=== PATIENT | male | born 1970 | race Caucasian/White ===

== ENCOUNTER 2018-09-05 17:54 | Inpatient (IN) | payer OTHER, MEDICAID, SELFPAY ==
[2018-09-05] VITALS (7 sets, daily range): BP systolic 125–156; BP diastolic 65–89; PULSE 111–119; RESP 17–22; TEMP 37.2–37.7; O2SAT 95–100; BMI 32.8
--- NOTE | 2018-09-05 18:03 | DI.RAD.S_ITS ---
PROCEDURE: XR FOOT RT MIN 3V INDICATIONS: foreign body/glass TECHNIQUE: 3 views of the foot were acquired. COMPARISON: None. FINDINGS: Bones: No fractures or dislocations. No suspicious bony lesions. Soft tissues: No tibiotalar joint effusion. Achilles tendon appears normal. No radiopaque foreign body noted. IMPRESSION: No acute bony abnormality of the right foot. No radiopaque foreign body. Dictated by: Veto Magana M.D. on 09/05/2018 at 18:30 Approved by: Veto Magana M.D. on 09/05/2018 at 18:31
--- NOTE | 2018-09-05 18:52 | ED_ITS ---
HPI - Skin/Abscess/Foreign Bdy General Chief complaint: Skin/Abscess/Foreign Body Stated complaint: RT FOOT PAIN Time Seen by Provider: 09/05/18 18:52 Source: patient Mode of arrival: ambulatory Limitations: no limitations History of Present Illness HPI narrative: 48-year-old male here for evaluation of right foot pain and swelling. Patient states that he stepped on a piece of glass several days ago which caused pain. He states that today he was walking up hill when he bent his big toe back and since then he has had quite a bit of discomfort. Came into the emergency department for evaluation. Related Data Home Medications Medication Instructions Recorded Confirmed No Known Home Medications 09/05/18 09/05/18 Allergies Allergy/AdvReac Type Severity Reaction Status Date / Time amoxicillin Allergy Vomiting Verified 09/05/18 18:02 Review of Systems Constitutional Denies fever(s) Cardiovascular Denies chest pain and Denies dyspnea Respiratory Denies dyspnea Musculoskeletal Comments: Right foot pain and swelling Integumentary/Breasts Comments: Cut to the bottom of the right foot Neurologic Reports paresthesias and Reports tremor(s) Hematologic/Lymphatic Denies easy bleeding and Denies easy bruising [facility] Medical History Hypertension (Acute) Social History household members: friend(s) Smoking Status: Current every day smoker Social History household members: friend(s) Smoking Status: Current every day smoker Exam Initial Vital Signs Initial Vital Signs: Vital Signs Temperature 99.7 F H 09/05/18 17:59 Pulse Rate 119 H 09/05/18 17:59 Respiratory Rate 22 09/05/18 17:59 Blood Pressure 154/85 H 09/05/18 17:59 Pulse Oximetry 100 09/05/18 17:59 Const General: cooperative, well groomed and No acute distress Orientation: alert, awake and oriented x3 HENMT Head: normal to inspection and normocephalic Resp Effort & Inspection: normal respiratory effort Cardio Rate: tachycardic Rhythm: regular rhythm Skin Other: 1 cm laceration to the arch of the right foot. No active bleeding. Surrounding redness and swelling the midfoot to the ankle Neuro General: alert, awake and oriented x3 Cognition: normal cognition Speech: speech normal Extrem General: normal to inspection and capillary refill normal Other: Swelling to the right foot from the toes to above the ankle. Range of motion limited by swelling Psych Appearance: grossly normal and well kempt Course Orders Ordered: ED Orders 09/05/18 19:12 Blood Culture Stat 09/05/18 22:54 Education, smoking cessation ONGOING 09/05/18 22:59 Consult to Discharge Planning Routine Consult to Physical Therapy Evaluate & Treat 09/06/18 Basic Metabolic Panel Routine C-Reactive Protein Quant Routine Complete Blood Count AUTO DIFF Routine Acetaminophen (Tylenol) 650 mg PO Q6HR PRN PRN Reason: As Needed for Fever/Mild Pain Hydrocodone Bitart/Acetaminophen ([place] 5/325) 1 tab PO Q4HR PRN PRN Reason: Pain, Moderate (4-6) Last Admin: 09/06/18 00:56 Dose: 1 tab Al Hydrox/Mg Hydrox/Simethicone (Maalox Plus) 30 ml PO Q6HR PRN PRN Reason: Dyspepsia Enoxaparin Sodium (Lovenox) 40 mg SUBCUT DAILY LUISA Sodium Chloride (Normal Saline 0.9%) 1,000 mls @ 100 mls/hr IV CONT LUISA Last Admin: 09/06/18 01:02 Dose: 100 mls/hr Vancomycin HCl 2,000 mg/ (Sodium Chloride) 500 mls @ 250 mls/hr IV Q12H LUISA Ondansetron HCl (Zofran Odt) 4 mg PO Q8HR PRN PRN Reason: Nausea And Vomiting Pantoprazole Sodium (Protonix) 20 mg PO 0600 LUISA Vancomycin HCl (Vancomycin Per Pharmacy) 1 request MISC NOW ONE Stop: 09/05/18 22:59 Discontinued Medications Ceftriaxone Sodium/Dextrose (Rocephin) 1 gm in 50 mls @ 100 mls/hr IV NOW ONE Stop: 09/05/18 18:56 Last Infusion: 09/05/18 20:05 Dose: 0 mls/hr Admin: 09/05/18 19:03 Dose: 100 mls/hr Vancomycin HCl 1,500 mg/ (Sodium Chloride) 500 mls @ 333.333 mls/hr IV NOW ONE Stop: 09/05/18 19:17 Last Infusion: 09/06/18 02:57 Dose: 0 mls/hr Infusion: 09/05/18 21:27 Dose: 333.333 mls/hr Admin: 09/05/18 19:48 Dose: 333.333 mls/hr Vancomycin HCl 500 mg/ Sodium (Chloride) 100 mls @ 100 mls/hr IV NOW ONE Stop: 09/06/18 00:44 Last Admin: 09/06/18 01:26 Dose: 100 mls/hr Ketorolac Tromethamine (Toradol) 30 mg IV NOW ONE Stop: 09/05/18 21:07 Last Admin: 09/05/18 21:16 Dose: 30 mg Morphine Sulfate (Morphine) 4 mg IV NOW ONE Stop: 09/05/18 19:15 Last Admin: 09/05/18 19:48 Dose: 4 mg Morphine Sulfate (Morphine) 4 mg IV NOW ONE Stop: 09/05/18 21:08 Last Admin: 09/05/18 21:16 Dose: 4 mg Ondansetron HCl (Zofran) 4 mg IV NOW ONE Stop: 09/05/18 19:12 Last Admin: 09/05/18 19:12 Dose: 4 mg Vital Signs - 8 hr 09/05/18 20:37 09/05/18 20:44 09/05/18 21:16 Temperature 99.0 F 98.9 F 99.4 F Pulse Rate 116 H Respiratory Rate Blood Pressure Blood Pressure [Right Arm] 156/82 H Pulse Oximetry 09/05/18 21:35 09/05/18 23:35 09/06/18 01:22 Temperature 99.8 F H 99.4 F Pulse Rate 119 H 113 H Respiratory Rate 20 17 Blood Pressure 128/65 125/75 Blood Pressure [Right Arm] Pulse Oximetry 96 95 95 09/06/18 03:30 Temperature 97.9 F Pulse Rate 108 H Respiratory Rate 16 Blood Pressure 116/76 Blood Pressure [Right Arm] Pulse Oximetry 97 MDM - Skin/Abscess/Foreign Bdy Lab Data Attestation: I reviewed the patient's lab results. Result diagrams: 09/05/18 19:00 09/05/18 19:00 Lab Results 09/05/18 09/05/18 09/05/18 Range/Units 19:00 19:00 19:00 WBC 18.3 H (4.5-11.0) X10^3/uL RBC 4.65 (4.5-5.9) X10^6/uL Hgb 14.3 (13.5-17.5) g/dL Hct 42.6 (41-53) % MCV 91.8 (80-100) fL MCH 30.8 (26-34) PG MCHC 33.5 (30-36) % RDW 14.0 (11.6-14.8) % Plt Count 269 (150-400) X10^3/uL Neut % (Auto) 90.1 H (50-75) % Lymph % (Auto) 3.8 L (25-40) % [place] % (Auto) 5.8 (3-14) % Eos % (Auto) 0.1 L (2-4) % Baso % (Auto) 0.2 (0-2) % Neut # (Auto) 77761 H (9192-4455) /uL Lymph # (Auto) 700 L (9981-4906) /uL [place] # (Auto) 1100 H (0-900) /uL Eos # (Auto) 0 (0-450) /uL Baso # (Auto) 0 (0-100) /uL ESR 6 (0-15) MM/HR Sodium 136 L (137-145) mmol/L Potassium 3.8 (3.4-5.1) mmol/L Chloride 100 (98-107) mmol/L Carbon Dioxide 23 (22-32) mmol/L BUN 22 H (9-20) mg/dL Creatinine 1.00 (0.66-1.25) mg/dL Estimated GFR > 60.0 (>60) mL/min BUN/Creatinine Ratio 22.0 (6-22) Glucose 125 H (70-100) mg/dL Lactate (0.7-2.1) mmol/L Calcium 9.8 (8.4-10.2) mg/dL Total Bilirubin 1.2 (0.2-1.3) mg/dL AST 37 (17-59) IU/L ALT 27 (21-72) IU/L Alkaline Phosphatase 84 (38-126) U/L C-Reactive Protein 2.6 H (<1.0) mg/dL Total Protein 8.1 (6.3-8.2) g/dL Albumin 4.9 (3.5-5.0) g/dL Globulin 3.2 (1.7-4.1) g/dL Albumin/Globulin Ratio 1.5 (1.0-2.8) Lipase 117 (23-300) U/L Procalcitonin 0.20 (<0.5) ng/mL 09/05/18 Range/Units 19:00 WBC (4.5-11.0) X10^3/uL RBC (4.5-5.9) X10^6/uL Hgb (13.5-17.5) g/dL Hct (41-53) % MCV (80-100) fL MCH (26-34) PG MCHC (30-36) % RDW (11.6-14.8) % Plt Count (150-400) X10^3/uL Neut % (Auto) (50-75) % Lymph % (Auto) (25-40) % [place] % (Auto) (3-14) % Eos % (Auto) (2-4) % Baso % (Auto) (0-2) % Neut # (Auto) (3445-6314) /uL Lymph # (Auto) (9347-0431) /uL [place] # (Auto) (0-900) /uL Eos # (Auto) (0-450) /uL Baso # (Auto) (0-100) /uL ESR (0-15) MM/HR Sodium (137-145) mmol/L Potassium (3.4-5.1) mmol/L Chloride (98-107) mmol/L Carbon Dioxide (22-32) mmol/L BUN (9-20) mg/dL Creatinine (0.66-1.25) mg/dL Estimated GFR (>60) mL/min BUN/Creatinine Ratio (6-22) Glucose (70-100) mg/dL Lactate 1.3 (0.7-2.1) mmol/L Calcium (8.4-10.2) mg/dL Total Bilirubin (0.2-1.3) mg/dL AST (17-59) IU/L ALT (21-72) IU/L Alkaline Phosphatase (38-126) U/L C-Reactive Protein (<1.0) mg/dL Total Protein (6.3-8.2) g/dL Albumin (3.5-5.0) g/dL Globulin (1.7-4.1) g/dL Albumin/Globulin Ratio (1.0-2.8) Lipase (23-300) U/L Procalcitonin (<0.5) ng/mL Imaging Data foot x-ray: Radiologist's impression: [address] [address] XRay Report Signed Patient: HENRIQUE DELATORRE NMR#: [id number] : 1970Acct:[id number] Age/Sex: 48 / MDate of Service: 09/05/18 Loc: ED Accession Number: [id number] Procedure: XR foot RT min 3V Ordering Provider: Pat Roche D.O. PROCEDURE: XR FOOT RT MIN 3V INDICATIONS: foreign body/glass TECHNIQUE: 3 views of the foot were acquired. COMPARISON: None. FINDINGS: Bones: No fractures or dislocations. No suspicious bony lesions. Soft tissues: No tibiotalar joint effusion. Achilles tendon appears normal. No radiopaque foreign body noted. IMPRESSION: No acute bony abnormality of the right foot. No radiopaque foreign body. Dictated by: Veto Magana M.D. on 09/05/2018 at 18:30 Approved by: Veto Magana M.D. on 09/05/2018 at 18:31 MDM Narrative Medical decision making narrative: Patient is relatively nontoxic appearing however is tachycardic and has an elevated white blood cell count. He has not hypotensive. I did not feel the need to do the 30 cc/kilos fluid despite technically being positive for sepsis. He does have swelling and redness to the right foot. I did use lidocaine around the incision on his foot and extended it slightly and with curved hemostats attempted to probe for any foreign bodies. I was unable to locate any. The x-ray did not show any foreign bodies. I feel given his tachycardia, elevated white blood cell, and the look of his foot that admission to the hospital is necessary. He was given antibiotics here in the emergency department. Discussed case with VÍCTOR Yanez [facility] hospitalist who will admit the patient for further evaluation treatment. Discussed the admiss ion with the patient who expressed understanding and agreement Discharge Plan Departure Patient Disposition: Admitted As Inpatient Clinical Impression: Cellulitis Qualifiers: Site of cellulitis: extremity Site of cellulitis of extremity: lower extremity Laterality: right Qualified Code(s): L03.115 - Cellulitis of right lower limb Discharge Date/Time: 09/05/18 21:28 Interventions: ED Discharge Assessment Last Done: 09/05/18 21:28 Admit Date/Time: 09/05/18 20:33 Admit Provider: Jose Lau
[2018-09-05] MEDS: CEFTRIAXONE 1 GM/50 ML FROZ.PIGGY IV (19:03)
[2018-09-05 19:08] LABS: Add Manual Diff / Slide Review NO; Basophils Absolute Auto 0 /uL (0-100); Basophils Percent Auto 0.2 % (0-2); Eosinophils Absolute Auto 0 /uL (0-450); Eosinophils Percent Auto 0.1 % (2-4); Hematocrit 42.6 % (41-53); Hemoglobin 14.3 g/dL (13.5-17.5); Lymphocytes Absolute Auto 700 /uL (1100-4500); Lymphocytes Percent Auto 3.8 % (25-40); Mean Corpuscular HGB Conc 33.5 % (30-36); Mean Corpuscular Hemoglobin 30.8 PG (26-34); Mean Corpuscular Volume 91.8 fL (80-100); Monocytes Absolute Auto 1100 /uL (0-900); Monocytes Percent Auto 5.8 % (3-14); Neutrophils Absolute Auto 16500 /uL (1500-7000); Neutrophils Percent Auto 90.1 % (50-75); Platelet Count 269 X10^3/uL (150-400); Red Blood Cell Count 4.65 X10^6/uL (4.5-5.9); White Blood Cell Count 18.3 X10^3/uL (4.5-11.0)
[2018-09-05] MEDS: ONDANSETRON 4 MG/2 ML INJ IV (19:12)
[2018-09-05 19:21] LABS: Lactate (Lactic Acid) 1.3 mmol/L (0.7-2.1)
[2018-09-05 19:24] LABS: Alanine Aminotransferase 27 IU/L (21-72); Albumin 4.9 g/dL (3.5-5.0); Albumin Globulin Ratio 1.5 (1.0-2.8); Alkaline Phosphatase 84 U/L (38-126); Aspartate Aminotransferase 37 IU/L (17-59); Bilirubin Total 1.2 mg/dL (0.2-1.3); Blood Urea Nitrogen 22 mg/dL (9-20); C-Reactive Protein Quant 2.6 mg/dL (<1.0); Calcium 9.8 mg/dL (8.4-10.2); Carbon Dioxide 23 mmol/L (22-32); Chloride 100 mmol/L (98-107); Estimated Glomerular Filt Rate > 60.0 mL/min (>60); Globulin 3.2 g/dL (1.7-4.1); Glucose 125 mg/dL (70-100); HEMOLYSIS < 15 (0-50); Lipase 117 U/L (23-300); Potassium 3.8 mmol/L (3.4-5.1); Sodium 136 mmol/L (137-145); Total Protein 8.1 g/dL (6.3-8.2)
[2018-09-05 19:25] LABS: Erythrocyte Sedimentation Rate 6 MM/HR (0-15)
[2018-09-05] MEDS: VANCOMYCIN 1,500 MG in SODIUM CHLORIDE 0.9% 500 ML 333.333 ML IV (19:48)
[2018-09-05] MEDS: MORPHINE 4 MG/ML INJ IV ×2 (19:48→21:16)
[2018-09-05] MEDS: KETOROLAC 30 MG/ML VIAL IV (21:16)
--- NOTE | 2018-09-05 22:59 | PC.NURSE ---
2044- Pt arrived to room 203 from ED via bed. A/O x3, right foot with puncture wound FANNIE, with chux underneath and cradle to bed, any palpation, tough, or weight to foot is severe pain to pt. vital are slightly high BP, HR, and temp-99.7, provided with snack and beverages, and water. rates pain 6/10, pt received morphine 4mg x 2 in ED along with torodol, and ceftriaxone, awaiting orders. Non wt bearing to right foot, 1PA FWW to BRP. Bed alarm on for safety.
[2018-09-06] VITALS (10 sets, daily range): BP systolic 106–141; BP diastolic 55–93; PULSE 82–108; RESP 16–20; TEMP 36.6–37.7; O2SAT 95–98
--- NOTE | 2018-09-06 | DI.MRI.S_ITS ---
PROCEDURE: MR FOOT RT WO/W CON INDICATIONS: Tenosynovitis TECHNIQUE: Noncontrast sagittal T1 spin echo and T2 fast spin echo with fat saturation, long-axis T1 spin echo and T2 fast spin echo with fat saturation; short-axis T1 spin echo, proton density fast spin echo, and T2 fast spin echo with fat saturation through the forefoot. Post-contrast short axis, long axis, and sagittal T1 spin echo with fat saturation through the forefoot. COMPARISON: [facility], CR, XR FOOT RT MIN 3V, 09/05/2018, 18:08. FINDINGS: Image quality: Diagnostic. Bones and joints: There is no acute fracture, dislocation, or suspicious osseous lesion involving the osseous structures of the right midfoot or forefoot. Postcontrast images demonstrate no suspicious osseous enhancement. There are no significant joint effusions. Mild degenerative changes are noted involving the calcaneocuboid and cuboid-metatarsal joints. There also mild degenerative changes involving the 1st metatarsophalangeal joint. Soft tissues: Mild subcutaneous edema is evident about the midfoot and forefoot that is slightly more pronounced along the dorsal aspect of the medial forefoot. There is also edema identified along the plantar aspect of the forefoot within the region of the intrinsic muscles. No significant muscle atrophy is appreciated, however. The Lisfranc ligament is intact. There is mild fluid within the flexor hallucis longus tendon sheath with corresponding enhancement on the postcontrast images. Slight increased signal involving this tendon is also present. There is no significant hearing. Otherwise, the remainder of the flexor and extensor tendons of the midfoot and forefoot appear to be within normal limits. No convincing areas of definitive tenosynovitis are appreciated. IMPRESSION: 1. Mild flexor hallucis longus tendinopathy with corresponding tenosynovitis. No significant hearing. 2. Subcutaneous and deep tissue edema of the midfoot and forefoot. There is no drainable fluid collection or soft tissue mass. 3. Mild degenerative changes involving the lateral mid foot joints and the 1st metatarsophalangeal joint. Dictated by: Jasmeet Bear M.D. on 09/06/2018 at 13:53 Approved by: Jasmeet Bear M.D. on 09/06/2018 at 13:59
[2018-09-06] MEDS: HYDROCODONE/ACET 5/325 TABLET 1 TAB PO ×4 (00:56→21:37)
[2018-09-06] MEDS: SODIUM CHLORIDE 0.9% 1,000 ML 100 ML IV ×2 (01:02→11:48)
[2018-09-06] MEDS: VANCOMYCIN 500 MG in SODIUM CHLORIDE 0.9% 100 ML IV (01:26)
--- NOTE | 2018-09-06 01:57 | P.HP_ITS ---
History of Present Illness Date Patient Seen: 09/05/18 Time Patient Seen: 22:30 Chief complaint: RT FOOT PAIN Narrative: This is a 48-year-old male patient with a history of hypertension who presents today for right foot pain and swelling. The patient reports 2 days ago stepping on glass and lacerating the sole of his right foot. Today he was walking stepped on the ball of his foot when he felt a snap with a sudden on facet of excruciating pain and subsequently had increasing redness and swelling of his foot and reports a red streak going up his ankle. The patient has soaked his foot without change. The patient had associated symptoms of fevers and chills today however he denies any headaches or dizziness visual changes, chest pain or shortness of breath. Has no nausea vomiting, diarrhea or constipation. Attempting to ambulate worsen his pain and swelling and nothing seemed to relieve it prompting him to present to the ER for treatment. Patient arrived in the ER at 5:59 p.m. which time he presented with low-grade temperature 99.7? with heart rate of 119 and blood pressure 154/85 and respirations of 22 saturating 100% on room air. An x-ray was taken of the foot which found no evidence of foreign body and no comment by Radiology abscess or soft tissue changes. Did have an elevated white count 18.3 with remainder of the CBC we within normal limits. He had procalcitonin 0.20 and a CRP of 2.6. His lactate is 1.3. His chemistry is unremarkable with a nonfasting glucose of 125. In the ER the wound on the sole foot was explored however no foreign body identified. Patient is admitted to the hospital for cellulitis and IV antibiotics Patient History Medical History Hypertension (Acute) Surgical History History of inguinal hernia repair (Acute) Social History household members: friend(s) Smoking Status: Current every day smoker Family & Social History Social History: household members friend(s) Prior Living Arrangements House Safety & Behavioral: Feels Safe in Current Yes Environment Been Physically Hurt or No Threatened By a Person Suicidal Ideation Description None Suicide Plan Description No Plan Tobacco & Substance use: Smoking Status Current every day smoker alcohol intake frequency 3 or more drinks per day Substance Use Type marijuana Comment: The patient [place] 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 He is single and his father from respiratory disease in his mother has heart problems and a pacemaker. He has 2 brothers 1 of which is peripheral vascular disease and the other is in good health. He has 1 sister who has no knowledge of her health history. Smoking: Current smoker, 1/2 to 1 pack per day for 35 years Alcohol: Patient admits to 6-816 oz beers per day Substance use: Patient endorses cannabis use. Advanced directives: Patient wishes to be A DO NOT RESUSCITATE and designates his mother be his surrogate decision maker. Meds Home Medications Medication Instructions Recorded Confirmed Type No Known Home Medications 09/05/18 09/05/18 History Allergies Allergy/AdvReac Type Severity Reaction Status Date / Time amoxicillin Allergy Vomiting Verified 09/05/18 18:02 Review of Systems Review of Systems All systems reviewed & are unremarkable except as noted in HPI and below Exam Vital Signs (past 8 hours): - 09/05/18 17:59 09/05/18 18:57 09/05/18 20:37 Temperature 99.7 F H 99.0 F Pulse Rate 119 H 111 H Respiratory Rate 22 18 Blood Pressure 154/85 H Blood Pressure [Right Arm] 145/89 H Pulse Oximetry 100 100 09/05/18 20:44 09/05/18 21:16 09/05/18 21:35 Temperature 98.9 F 99.4 F 99.8 F H Pulse Rate 116 H 119 H Respiratory Rate 20 Blood Pressure 128/65 Blood Pressure [Right Arm] 156/82 H Pulse Oximetry 96 09/05/18 23:35 09/06/18 01:22 Temperature 99.4 F Pulse Rate 113 H Respiratory Rate 17 Blood Pressure 125/75 Blood Pressure [Right Arm] Pulse Oximetry 95 95 Oxygen Delivery Method Room Air Narrative Exam Narrative: General: Well developed, well nourished, in no acute distress. Skin: Warm, dry, pink, no rashes, no visible lesions HEENT: Normocephalic, PERRLA, conjunctiva clear, EAC's are clear with pearly TMs, nasal mucosa pink with no drainage, no sinus tenderness to percussion, posterior pharynx pink without lesions or exudate, no lymphadenopathy Neck: Supple, no masses, no thyromegaly, no carotid bruits or JVD Cardiac: Regular rate and rhythm, S1-S2, no murmur, no gallops or rubs, 2+ radial pulse, 1+ dorsalis pedis pulse Chest: Symmetrical movement, breathing non labored, dry nonproductive cough cough present, BS central coarseness clearing with cough, no residual crackles or wheezing Abdomen: Soft, no tenderness or guarding, no masses or organomegaly, no flank or suprapubic pain, BS normal. Back: Normal curvature, no tenderness to palpation, no CVA tenderness on percussion Extremities: Patient with laceration on the sole of the right foot, small amount of bleeding post wound exploration in the ER, swelling and warmth to above level of the medial malleolus, pain on palpation and with weight-bearing, no deformities Neuro: AAOx4, no localizing neurological findings, no paresthesias Psych: pleasant, thought coherent, stable mood and congruent affect Objective Labs Result Diagrams: 09/06/18 06:58 09/06/18 06:58 Labs: Laboratory Results - last 24 hr 09/05/18 09/05/18 09/05/18 19:00 19:00 19:00 WBC 18.3 H RBC 4.65 Hgb 14.3 Hct 42.6 MCV 91.8 MCH 30.8 MCHC 33.5 RDW 14.0 Plt Count 269 Neut % (Auto) 90.1 H Lymph % (Auto) 3.8 L [place] % (Auto) 5.8 Eos % (Auto) 0.1 L Baso % (Auto) 0.2 Neut # (Auto) 36236 H Lymph # (Auto) 700 L [place] # (Auto) 1100 H Eos # (Auto) 0 Baso # (Auto) 0 ESR 6 Sodium 136 L Potassium 3.8 Chloride 100 Carbon Dioxide 23 BUN 22 H Creatinine 1.00 Estimated GFR > 60.0 BUN/Creatinine Ratio 22.0 Glucose 125 H Lactate Calcium 9.8 Total Bilirubin 1.2 AST 37 ALT 27 Alkaline Phosphatase 84 C-Reactive Protein 2.6 H Total Protein 8.1 Albumin 4.9 Globulin 3.2 Albumin/Globulin Ratio 1.5 Lipase 117 Procalcitonin 0.20 09/05/18 19:00 WBC RBC Hgb Hct MCV MCH MCHC RDW Plt Count Neut % (Auto) Lymph % (Auto) [place] % (Auto) Eos % (Auto) Baso % (Auto) Neut # (Auto) Lymph # (Auto) [place] # (Auto) Eos # (Auto) Baso # (Auto) ESR Sodium Potassium Chloride Carbon Dioxide BUN Creatinine Estimated GFR BUN/Creatinine Ratio Glucose Lactate 1.3 Calcium Total Bilirubin AST ALT Alkaline Phosphatase C-Reactive Protein Total Protein Albumin Globulin Albumin/Globulin Ratio Lipase Procalcitonin Assessment & Plan Assessment & Plan narrative: 1. Cellulitis right foot, acute -warmth swelling and redness to above the level of the malleolus -previous restrict no longer in evidence is described, elevated white count at 18.3 lactate of 1.3, CRP 2.6, procalcitonin 0.20 -wound on the sole of the foot has been explored by ED physician with no foreign body found, no foreign body visualized on imaging -the patient is started on Rocephin and vancomycin, pharmacy to dose vancomycin. 2. Alcohol abuse, chronic -patient admits to 6-816 oz beers daily. -patient comes last drink was approximately 12-24 hours ago without evidence of withdrawal symptoms -continue to evaluate and monitor for alcohol withdrawals 3. Current daily smoker, chronic -patient smokes 1/2 to 1 pack per day as well as cannabis. -discussed smoking cessations for greater than 3 but less than 10 min. The patient is admitted to the hospital due to the severity of symptoms and the risk of complications. He is admitted as observation with expected length of stay to be less than 2 midnights. Quality VTE Deep Vein Thrombosis/Pulmonary Embolism Present on Admission: No
[2018-09-06] MEDS: PANTOPRAZOLE 20 MG TABLET PO (06:24)
--- NOTE | 2018-09-06 07:07 | PM.PN.1 ---
Subjective Date Patient Seen: 09/06/18 Interval history: Fabián Granados is a 48-year-old male patient with a past medical history significant for hypertension and alcohol dependence who presented today for right foot pain and swelling after hiking and stepping on foreign body. The patient is resting in bed. He appears significantly ill. He is diaphoretic. He endorses fever and chills. He denies headache, chest pain, shortness of breath, nausea, vomiting, dysuria, diarrhea or constipation. He is unable to dorsiflex his foot due to pain. He is voiding and eliminating without difficulty. He is not ambulating due to pain and foot infection. Exam Vital Signs (past 8 hours): - 09/05/18 23:35 09/06/18 01:22 09/06/18 03:30 Temperature 99.4 F 97.9 F Pulse Rate 113 H 108 H Respiratory Rate 17 16 Blood Pressure 125/75 116/76 Pulse Oximetry 95 95 97 Oxygen Delivery Method Room Air Narrative Exam Narrative: General: Middle-aged gentleman sitting in bed and in no acute distress, appears mildly uncomfortable and ill, diaphoretic, well-developed, well-nourished, appropriately interactive. HEENT: Normocephalic, atraumatic. External ears without defect. Pupils equal, round, and reactive to light. Anicteric sclerae, moist conjunctivae, and no lid lag. Oropharynx free of erythema and cobble stoning with moist mucosa. Neck: Supple with full range of motion. No lymphadenopathy or thyromegaly. Cardiovascular: Regular rhythm, tachycardic, without murmurs, rubs, or gallops appreciated. Pulmonary: Clear to auscultation bilaterally without crackles, wheezes, or rhonchi. Normal respiratory effort with no use of accessory muscles. Abdomen: Soft, bowel sounds present, nontender, nondistended. No hepatosplenomegaly or masses appreciated. Extremities: Right foot erythema and edema especially medially with streaking up leg. Significantly tender to touch on plantar surface of foot close to wound and dorsum of foot medially. Unable to dorsiflex foot due to pain. Skin: Normal temperature, turgor, and texture; no rash, ulcers, or subcutaneous nodules appreciated. Neurological: Cranial nerves grossly intact. Psychiatric: Normal mood and affect. Alert and oriented to person, place, and time. Objective Labs Result Diagrams: 09/06/18 06:58 09/06/18 06:58 Labs: Laboratory Results - last 24 hr 09/05/18 09/05/18 09/05/18 19:00 19:00 19:00 WBC 18.3 H RBC 4.65 Hgb 14.3 Hct 42.6 MCV 91.8 MCH 30.8 MCHC 33.5 RDW 14.0 Plt Count 269 Neut % (Auto) 90.1 H Lymph % (Auto) 3.8 L [place] % (Auto) 5.8 Eos % (Auto) 0.1 L Baso % (Auto) 0.2 Neut # (Auto) 47779 H Lymph # (Auto) 700 L [place] # (Auto) 1100 H Eos # (Auto) 0 Baso # (Auto) 0 ESR 6 Sodium 136 L Potassium 3.8 Chloride 100 Carbon Dioxide 23 BUN 22 H Creatinine 1.00 Estimated GFR > 60.0 BUN/Creatinine Ratio 22.0 Glucose 125 H Lactate Calcium 9.8 Total Bilirubin 1.2 AST 37 ALT 27 Alkaline Phosphatase 84 C-Reactive Protein 2.6 H Total Protein 8.1 Albumin 4.9 Globulin 3.2 Albumin/Globulin Ratio 1.5 Lipase 117 Procalcitonin 0.20 09/05/18 19:00 WBC RBC Hgb Hct MCV MCH MCHC RDW Plt Count Neut % (Auto) Lymph % (Auto) [place] % (Auto) Eos % (Auto) Baso % (Auto) Neut # (Auto) Lymph # (Auto) [place] # (Auto) Eos # (Auto) Baso # (Auto) ESR Sodium Potassium Chloride Carbon Dioxide BUN Creatinine Estimated GFR BUN/Creatinine Ratio Glucose Lactate 1.3 Calcium Total Bilirubin AST ALT Alkaline Phosphatase C-Reactive Protein Total Protein Albumin Globulin Albumin/Globulin Ratio Lipase Procalcitonin Assessment & Plan Assessment & Plan narrative: Fabián Granados is a 48-year-old male patient with a past medical history significant for hypertension and alcohol use who presented today for right foot pain and swelling after stepping on foreign body. 1. Acute right foot tenosynovitis and cellulitis, present on admission. Active. -Patient recently stepped on foreign body while hiking and presented with excruciating pain, erythema and cellulitis with mild streaking. -WBC elevated at 18.3 and trending down today to 13.5. Procalcitonin initially negative at 0.2 but trending up today to 1.6. Continue to trend WBC and procalcitonin daily. -Started on vancomycin with dosing per pharmacy and Zosyn 3.375 g every 8 hours. -ED physician explored foot for foreign body which was not found and no evidence of FB on imaging. -Ordered MRI which demonstrated mild flexor hallucis longus tendinopathy with corresponding tenosynovitis, subcutaneous and deep tissue edema of the midfoot and forefoot without drainable fluid collection or soft tissue mass. -Ordered wound care consult, pending. -Ordered Orthopedic consult and we appreciate their time and care of the patient. Dr. Adkins plans to see patient and potentially take to the OR to washout foot. 2. Chronic alcohol dependence, present on admission. Active. -Patient admits to 6-8 16 oz beers daily. -Last drink was approximately 12-24 hours ago without evidence of withdrawal symptoms. Patient denies any history of alcohol withdrawal, seizures or DTs. -Continue to monitor closely for alcohol withdrawal. Low threshold to start CIWA protocol. -Discussed cutting back and cessation of alcohol use. 3. Tobacco dependence, present on admission. Active. -Patient reports he is withdrawing from nicotine. Offered the patient Nicoderm, however, he has a skin allergy to the patch. -Recommended smoking cessation. Disposition: Patient will be hospitalized for several days depending on response to antibiotic therapy and probable surgical intervention. Quality VTE Deep Vein Thrombosis/Pulmonary Embolism Present on Admission: No
[2018-09-06 07:17] LABS: Add Manual Diff / Slide Review NO; Basophils Absolute Auto 0 /uL (0-100); Eosinophils Absolute Auto 100 /uL (0-450); Eosinophils Percent Auto 0.7 % (2-4); Hematocrit 38.3 % (41-53); Hemoglobin 13.1 g/dL (13.5-17.5); Lymphocytes Absolute Auto 400 /uL (1100-4500); Mean Corpuscular HGB Conc 34.2 % (30-36); Mean Corpuscular Hemoglobin 31.3 PG (26-34); Mean Corpuscular Volume 91.3 fL (80-100); Monocytes Absolute Auto 500 /uL (0-900); Neutrophils Absolute Auto 12400 /uL (1500-7000); Neutrophils Percent Auto 92.3 % (50-75); Platelet Count 208 X10^3/uL (150-400); Red Blood Cell Count 4.19 X10^6/uL (4.5-5.9); Red Cell Distribution Width 13.9 % (11.6-14.8); White Blood Cell Count 13.5 X10^3/uL (4.5-11.0)
[2018-09-06 07:33] LABS: BUN Creatinine Ratio 17.3 (6-22); Blood Urea Nitrogen 19 mg/dL (9-20); Calcium 8.8 mg/dL (8.4-10.2); Carbon Dioxide 25 mmol/L (22-32); Chloride 102 mmol/L (98-107); Estimated Glomerular Filt Rate > 60.0 mL/min (>60); Glucose 102 mg/dL (70-100); HEMOLYSIS < 15 (0-50); Potassium 3.7 mmol/L (3.4-5.1); Sodium 135 mmol/L (137-145)
[2018-09-06 07:50] LABS: C-Reactive Protein Quant 14.7 mg/dL (<1.0)
--- NOTE | 2018-09-06 10:43 | PT.IIE ---
Surgical History (Last Reviewed 09/06/18 @ 09:04 by JAYNE Mas) History of inguinal hernia repair (Acute) Medical History (Last Reviewed 09/06/18 @ 09:04 by JAYNE Mas) Hypertension (Acute) Physical Therapy Inpatient Evaluation/Re-Eval M1 PT/OT-IP Prior Functional Status Start: 09/06/18 08:19 Freq: NEEDED Status: Active Protocol: Document 09/06/18 10:43 DLM (Rec: 09/06/18 12:14 DLM [id number]) Medical Review Prior Functional Status Medical History Reviewed Yes Diet/Fluid Consistency Regular Communication WNL Mobility and Gait Independent without device, community distances Activities of Daily Living and IADL's Independent Prior Functional Level (Other details) he started using crutches at home before coming to the hospital Social History Household Members friend(s) Living Arrangements House Number of Floors (Floors) One Floor Number of Stairs To Enter/Railing? 2 with one rail Home Equipment Crutches Additional Social History Comment lives in barn, uneven ground to get to the barn Hx of back injury M2 PT-IP Current Condition Start: 09/06/18 08:19 Freq: NEEDED Status: Active Protocol: Document 09/06/18 10:43 DLM (Rec: 09/06/18 12:14 DLM [id number]) Physical Therapy Current Condition Current Condition Evaluation Date 09/06/18 Treatment Diagnosis right foot infection, impaired gait Onset Date 09/05/18 Precautions Other Precautions no weight bearing status ordered, no dressing on foot at this time M3 PT-IP Subjective Start: 09/06/18 08:19 Freq: NEEDED Status: Active Protocol: Document 09/06/18 10:43 DLM (Rec: 09/06/18 12:14 DLM [id number]) Subjective Physical Therapy Visit Type Type Initial Evaluation Visit Start Time 10:19 Visit Stop Time 10:43 Total Visit Minutes 24 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 0 Physical Therapy Visit Comments Patient Comments He got tired and sore on the crutches but got around ok, he thinks a walker would be easier for him to use Patient Goals he wants to return home Therapy Pain Assessment Pain When Pain Assessed During Mobility Pain Present Pain Present Pain Reported Location Right Foot Intensity 4 Scale Used Numeric (1 - 10) Description Aching Pain Management Techniques Elevation M4 PT-IP Mobility and Gait Start: 09/06/18 08:19 Freq: NEEDED Status: Active Protocol: Document 09/06/18 10:43 DLM (Rec: 09/06/18 12:14 DLM [id number]) PT-Bed Mobility Assessment Rolling Type of Rolling Bilateral Level of Assist Independent Supine to Sit Supine to Sit Independent Sit to Supine Sit to Supine Independent Scooting Scooting to Edge of Bed Independent Scooting Up and Down in Bed Independent PT-Transfer Assessment Sit to and From Stand Sit to and from Stand Independent Use of Upper Extremities Equipment Transfer Assistive Device Gait Belt Front Wheeled Walker Transfers Transfer Destination Bed Transfer Technique Stand Step Pivot Transfer Ability Level of Assist Standby Assistance Use of Upper Extremities Gait Assessment Gait Gait Assistance Required: Standby Assistance Distance (Feet) 50 Assistive Devices Assistive Device Gait Belt Front Wheeled Walker Gait Deviations General Gait Pattern Antalgic Factors Limiting Gait Function Factors Limiting Gait Function Decreased Activity Tolerance Comments Gait Comments pt using non-weight bearing on right foot at this time, demonstrates good ability to hop on left LE for functional gait, assisted pt with IV PT-Balance Assessment Sitting Balance and Reactions Static Sitting Balance Ability Normal Dynamic Sitting Balance Ability Normal Standing Balance and Reactions Static Standing Balance Ability Good Dynamic Standing Balance Ability Good Device Used FWW M5 PT-IP Objective Assessments Start: 09/06/18 08:19 Freq: NEEDED Status: Active Protocol: Document 09/06/18 10:43 DLM (Rec: 09/06/18 12:14 DLM [id number]) Orientation Orientation/Cognition Level of Alertness Alert Orientation Name Age Birthday Month Date Year Day of Week Place Situation Language Function Ability No Deficits Noted Safety Awareness Understands Safety Issues Memory Description No Deficits Noted Gross Range of Motion Upper Extremity ROM Assessment Within Functional Limits Lower Extremity ROM Assessment Right Impaired Impairments foot/ankle edema with wound on plantar foot Strength Upper Extremity Strength Assessment Within Functional Limits Lower Extremity Strength Assessment Right Impaired Hip WNL Knee WNL Ankle not tested due to wound, moving actively Coordination Assessment Gross Coordination Gross Coordination WNL Sensation Assessment Sensation Gross Sensation WNL Muscle Tone Muscle Tone WNL Yes M6 PT-IP Treatment Start: 09/06/18 08:19 Freq: NEEDED Status: Active Protocol: Document 09/06/18 10:43 DLM (Rec: 09/06/18 12:14 DL [id number]) Physical Therapy Treatment Education Education Provided Safety M7 PT-IP Assessment and Plan Start: 09/06/18 08:19 Freq: NEEDED Status: Active Protocol: Document 09/06/18 10:43 DLM (Rec: 09/06/18 12:14 DLM [id number]) PT Summary Assessment and Plan Potential Rehabilitation Potential Excellent Status of Condition at Evaluation Evolving Summary Impairments Pain ROM Strength Balance Assessment Summary Fabián is alert and shows good effort with therapy. He tolerated ambulation well with fWW. He is able to use non- weight bearing on right foot to manage his pain and wound at this time. He was using crutches before his admission but feels a FWW would be easier to use at home. Will defer further gait to nursing at this time. He appears safe to discharge home with FWW or crutches (pt preference). Recommendations To Nursing Amount of Assist Needed Standby Assistance Discharge Recommendations PT Discharge Recommendations Home with Assistance Other Discharge Recommendations he reports his friends can help Equipment Needed for Home Before pt wanting FWW Discharge
[2018-09-06] MEDS: VANCOMYCIN 2,000 MG in SODIUM CHLORIDE 0.9% 500 ML 250 ML IV ×2 (11:50→23:10)
[2018-09-06] MEDS: ENOXAPARIN 40 MG/0.4 ML SYRINGE SUBCUT (11:51)
[2018-09-06] MEDS: MAG HYDROX/ALUM/SIMETH 30 ML UDC PO (11:56)
--- NOTE | 2018-09-06 12:49 | PC.NURSE ---
Addendum entered by Galilea Khalil R.N. 09/06/18 14:43: pt went to MRI, IVF and vanco infusion had to be stopped, restarted at 1440. will delay next scheduled antibiotic. Original Note: DAy Shift- pt became NPO at 1250 per verbal order by Dr. Tinoco. Right bottom of foot now has dressing per wound consult.
[2018-09-06 16:04] LABS: Hemoglobin A1C% w Est Avg Glu 5.4 % (4.0-6.0)
[2018-09-06] MEDS: PIPERACILLIN-TAZO 3.375 GM/50 ML FROZ.PIGGY IV ×2 (18:00→20:27)
--- NOTE | 2018-09-06 22:04 | P.CONS_ITS ---
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 He states that there was a broken bilateral bottle and he had stepped on glass about a day before that somewhere else in his foot and that healed up without difficulty. On his most recent episode it was a fairly large sharps shard of glass. He removed it without difficulty but then he notes that he developed some increased redness and swelling around the foot and he felt a pop and had significant increased pain. Social history is remarkable for a brother with Buerger's disease and he notes that he is a heavy smoker. He specifically denies being a diabetic. [facility] Medical History Hypertension (Acute) Surgical History History of inguinal hernia repair (Acute) Social History household members: friend(s) Smoking Status: Current every day smoker Social History household members: friend(s) Smoking Status: Current every day smoker Meds Home Medications Medication Instructions Recorded Confirmed Type No Known Home Medications 09/05/18 09/05/18 History Allergies Allergy/AdvReac Type Severity Reaction Status Date / Time amoxicillin Allergy Vomiting Verified 09/05/18 18:02 Review of Systems Review of Systems No recent fever cough or cold, he does smoke any uses some marijuana, he has not had any recent respiratory problems and has no known history of recurrent skin infections. He denies a history of intravenous drug abuse. Exam Vital Signs (past 8 hours): - 09/06/18 15:46 09/06/18 19:58 Temperature 99.6 F 99.6 F Pulse Rate 90 89 Respiratory Rate 20 20 Blood Pressure 124/74 106/55 L Pulse Oximetry 98 98 Oxygen Delivery Method Room Air Oxygen Flow Rate 0 Narrative Exam Narrative: HEENT is benign, lungs are clear cor regular rate and rhythm, abdomen benign, has a palpable dorsalis pedis and posterior tibial pulse bilaterally, he has surgical incision on the plantar aspect of the right foot there is moderate swelling along the plantar aspect of his foot he can fire his toe flexors and toe extensors and IA he was able to fire his tibialis anterior and common toe extensors as well as his perineal tendons, there is no specific pain with gentle passive range of motion of his toes in the MTP joint of the great toe through the 5th toe. There is no there is soft tissue swelling but no specific focal fluctuance. There is moderate cellulitis noted to be with slight streaking up into the calf region. Objective Labs Result Diagrams: 09/06/18 06:58 09/06/18 06:58 Labs: Laboratory Results - last 24 hr 09/06/18 09/06/18 09/06/18 06:58 06:58 06:58 WBC 13.5 H RBC 4.19 L Hgb 13.1 L Hct 38.3 L MCV 91.3 MCH 31.3 MCHC 34.2 RDW 13.9 Plt Count 208 Neut % (Auto) 92.3 H Lymph % (Auto) 3.0 L [place] % (Auto) 4.0 Eos % (Auto) 0.7 L Baso % (Auto) 0.0 Neut # (Auto) 37521 H Lymph # (Auto) 400 L [place] # (Auto) 500 Eos # (Auto) 100 Baso # (Auto) 0 Sodium 135 L Potassium 3.7 Chloride 102 Carbon Dioxide 25 BUN 19 Creatinine 1.10 Estimated GFR > 60.0 BUN/Creatinine Ratio 17.3 Glucose 102 H Hemoglobin A1c Calcium 8.8 C-Reactive Protein 14.7 H Procalcitonin 1.60 H Nasal Screen MRSA (PCR) 09/06/18 09/06/18 06:58 09:20 WBC RBC Hgb Hct MCV MCH MCHC RDW Plt Count Neut % (Auto) Lymph % (Auto) [place] % (Auto) Eos % (Auto) Baso % (Auto) Neut # (Auto) Lymph # (Auto) [place] # (Auto) Eos # (Auto) Baso # (Auto) Sodium Potassium Chloride Carbon Dioxide BUN Creatinine Estimated GFR BUN/Creatinine Ratio Glucose Hemoglobin A1c 5.4 Calcium C-Reactive Protein Procalcitonin Nasal Screen MRSA (PCR) Negative for mrsa Assessment & Plan Assessment & Plan narrative: Right foot x-rays from 09/05/2017 show normal soft tissues no evidence of arthritis, MRI scan from today 09/06/2018 shows no evidence of a focal abscess, subcutaneous edema in the midfoot and forefoot, mild swelling along the flexor hallucis longus with out obvious tearing. Impression is right foot puncture wound with obvious cellulitis but currently no evidence of a subcutaneous abscess. Possible retained foreign body including glass but negative exploration in the emergency room. I have recommended that we continue with IV antibiotics he can be weight-bearing as tolerated especially on his heel with a postoperative shoe and I will re-evaluate him tomorrow to assess his response to the antibiotics. Currently is white count appears to be going down and his temperature is improved.
[2018-09-07] VITALS (9 sets, daily range): BP systolic 116–146; BP diastolic 57–86; PULSE 77–89; RESP 18–20; TEMP 36.6–37.2; O2SAT 96–98
[2018-09-07] MEDS: MAG HYDROX/ALUM/SIMETH 30 ML UDC PO (00:10)
[2018-09-07] MEDS: PIPERACILLIN-TAZO 3.375 GM/50 ML FROZ.PIGGY IV ×3 (05:23→20:38)
[2018-09-07] MEDS: HYDROCODONE/ACET 5/325 TABLET 1 TAB PO ×3 (05:26→18:34)
[2018-09-07] MEDS: PANTOPRAZOLE 20 MG TABLET PO (06:43)
[2018-09-07] MEDS: SODIUM CHLORIDE 0.9% 1,000 ML 100 ML IV (06:45)
[2018-09-07 07:23] LABS: Add Manual Diff / Slide Review NO; Basophils Absolute Auto 0 /uL (0-100); Basophils Percent Auto 0.2 % (0-2); Eosinophils Absolute Auto 300 /uL (0-450); Eosinophils Percent Auto 3.2 % (2-4); Hematocrit 36.1 % (41-53); Hemoglobin 12.2 g/dL (13.5-17.5); Lymphocytes Absolute Auto 400 /uL (1100-4500); Lymphocytes Percent Auto 4.2 % (25-40); Mean Corpuscular HGB Conc 33.9 % (30-36); Mean Corpuscular Volume 91.6 fL (80-100); Monocytes Absolute Auto 500 /uL (0-900); Monocytes Percent Auto 4.7 % (3-14); Neutrophils Absolute Auto 9100 /uL (1500-7000); Neutrophils Percent Auto 87.7 % (50-75); Platelet Count 195 X10^3/uL (150-400); Red Blood Cell Count 3.95 X10^6/uL (4.5-5.9); White Blood Cell Count 10.4 X10^3/uL (4.5-11.0)
[2018-09-07 07:44] LABS: Alanine Aminotransferase 26 IU/L (21-72); Albumin 2.9 g/dL (3.5-5.0); Albumin Globulin Ratio 1.2 (1.0-2.8); Alkaline Phosphatase 70 U/L (38-126); Aspartate Aminotransferase 21 IU/L (17-59); Bilirubin Total 0.3 mg/dL (0.2-1.3); Blood Urea Nitrogen 15 mg/dL (9-20); Calcium 8.2 mg/dL (8.4-10.2); Carbon Dioxide 25 mmol/L (22-32); Chloride 104 mmol/L (98-107); Estimated Glomerular Filt Rate > 60.0 mL/min (>60); Globulin 2.4 g/dL (1.7-4.1); Glucose 99 mg/dL (70-100); HEMOLYSIS < 15 (0-50); Potassium 3.6 mmol/L (3.4-5.1); Sodium 136 mmol/L (137-145); Total Protein 5.3 g/dL (6.3-8.2)
[2018-09-07 08:21] LABS: Procalcitonin 1.49 ng/mL (<0.5)
--- NOTE | 2018-09-07 09:15 | P.PN_ITS ---
Subjective Date Patient Seen: 09/07/18 Time Patient Seen: 09:10 Interval history: Hospital day 2 with right foot cellulitis. Patient did have orthopedic consult done by Dr. Adkins yesterday. She decided to wait on any surgical intervention to see how he responds to antibiotics. He is currently on IV vancomycin and Zosyn. Using [place] 5 mg for pain. He states his pain and swelling to the foot have improved. Also decreased erythema since yesterday according to patient. He has not been doing any significant weight-bearing on the right foot. Exam Vital Signs (past 8 hours): - 09/07/18 05:20 Temperature 98.2 F Pulse Rate 88 Respiratory Rate 18 Blood Pressure 146/81 H Pulse Oximetry 98 Oxygen Delivery Method Room Air Oxygen Flow Rate 0 Narrative Exam Narrative: Alert, oriented no acute distress resting in bed. Right foot. Area of demarcation to his foot and ankle are noticeably decreased specially to the ankle area. Mild erythema to the dorsal medial aspect of foot which is decreased neck according to the patient. Swelling is mild and decreased according to patient. Good blanching and sensation to foot. Dressing to the plantar aspect of foot is dry. Objective Labs Result Diagrams: 09/07/18 06:50 09/07/18 06:50 Labs: Laboratory Results - last 24 hr 09/06/18 09/06/18 09/07/18 06:58 09:20 06:50 WBC 10.4 RBC 3.95 L Hgb 12.2 L Hct 36.1 L MCV 91.6 MCH 31.0 MCHC 33.9 RDW 14.0 Plt Count 195 Neut % (Auto) 87.7 H Lymph % (Auto) 4.2 L [place] % (Auto) 4.7 Eos % (Auto) 3.2 Baso % (Auto) 0.2 Neut # (Auto) 9100 H Lymph # (Auto) 400 L [place] # (Auto) 500 Eos # (Auto) 300 Baso # (Auto) 0 Sodium Potassium Chloride Carbon Dioxide BUN Creatinine Estimated GFR BUN/Creatinine Ratio Glucose Hemoglobin A1c 5.4 Calcium Total Bilirubin AST ALT Alkaline Phosphatase Total Protein Albumin Globulin Albumin/Globulin Ratio Procalcitonin Nasal Screen MRSA (PCR) Negative for mrsa 09/07/18 09/07/18 06:50 06:50 WBC RBC Hgb Hct MCV MCH MCHC RDW Plt Count Neut % (Auto) Lymph % (Auto) [place] % (Auto) Eos % (Auto) Baso % (Auto) Neut # (Auto) Lymph # (Auto) [place] # (Auto) Eos # (Auto) Baso # (Auto) Sodium 136 L Potassium 3.6 Chloride 104 Carbon Dioxide 25 BUN 15 Creatinine 1.00 Estimated GFR > 60.0 BUN/Creatinine Ratio 15.0 Glucose 99 Hemoglobin A1c Calcium 8.2 L Total Bilirubin 0.3 AST 21 ALT 26 Alkaline Phosphatase 70 Total Protein 5.3 L Albumin 2.9 L Globulin 2.4 Albumin/Globulin Ratio 1.2 Procalcitonin 1.49 H Nasal Screen MRSA (PCR) Assessment & Plan Assessment & Plan narrative: Plan: [place] [id number] today. His swelling and erythema to the foot are improved. Decreased pain. Patient appears to be responding well with antibiotic. Dr. Adkins the planned on seeing the patient again today. Will anticipate him continue on his IV antibiotics for another 24-48 hours then planned discharge pending hospitalist clearance and orders. Patient lives on [place]. [facility] VTE Deep Vein Thrombosis/Pulmonary Embolism Present on Admission: No
[2018-09-07] MEDS: ENOXAPARIN 40 MG/0.4 ML SYRINGE SUBCUT (09:53)
--- NOTE | 2018-09-07 10:21 | PC.NURSE ---
Addendum entered by Galilea Khalil R.N. 09/07/18 15:06: Right foot dressing removed, dressing compromised. Area cleansed with NS, tender to touch, old dried blood present over incision. Pat dried and small allevyn dressing. Original Note: Addendum entered by Galilea Khalil R.N. 09/07/18 12:18: Attempted to place Forefoot off/loading ortho shoe per Dr. Adkins and PT recommendation for forefoot offloading. Pt attempted to use X1 ambulating from bed to BR. Pt wanted removed and said will try again later. Original Note: Day Shift- Pt A&OX4, CIWA score 0. Right foot edematous and firm, tender to touch. Redness not exceeding previous marked lines from Dr. Tinoco assessment 09/06. Encouraged elevation on pillows. Right bottom of foot dressing dry. OOB with SBA, pt using walker. Pain controlled with prn [place], states minimal pain while resting, pain increases with movement, when placing foot in a dangle position and with touch. Pt reported 2 small loose diarrhea Bm's this shift. Pt declined nicotine replacement therapy at this time. No other voiced concerns, call light with in reach.
[2018-09-07 11:44] LABS: Vancomycin Trough 11.5 ug/mL (10-20)
--- NOTE | 2018-09-07 12:05 | PC.NURSE ---
Wound Nurse Consult Note with Dr. Bailon We saw Fabián yesterday, September 06, 2018. Fabián was in bed with his right foot elevated on a pillow. His right foot and ankle have erythema and he has developed streaks of redness up from foot to his lower leg. I used a marker and marked these new areas, as there are pen markings from previous days. Dr. Tinoco has notice this as well. I cleaned the plantar surface of his foot with a warm wash cloth. There is no open wound area although this is where he stepped on some glass. I placed a 3x[address] Bailon recommended to Dr Tinoco that ortho also consult on the patient and that Fabián remain non-weight bearing on his right foot.
[2018-09-07] MEDS: VANCOMYCIN 2,000 MG in SODIUM CHLORIDE 0.9% 500 ML 250 ML IV (12:13)
--- NOTE | 2018-09-07 14:35 | P.CMURPRON_ITS ---
CM UR Physician Consult Note Date of Review:: 09/07/18 Date of Admission:: 09/05/18 Length of Stay:: 2 Diagnosis:: RT FOOT PAIN Narrative: 48 yo male with puncture wound to foot. He has extensive cellulitis and tenosynovitis by MRI, also deep soft tissue inf ection without drainable abscrss. This should be inpatient status.
--- NOTE | 2018-09-07 16:27 | CM.DANOTE ---
Discharge Planning/Care Management DCP: assessment: case received and discussed in Team Rounds. Pt is a 48 year old male who admitted night of 09/05 to carer of hospitalist team. Payer: [facility] Admissions status: UR physician has reviewed and discussed case this afternoon with UR ANDRE Tolliver. Sharee has discussed with Dr. Craven and admission status is now INPT: confirmed by UR ANDRE Tolliver from time of admission. Per TRAP OPERATOR Leilani in Team Rounds this morning PT did see pt and has cleared him for the home setting when stable medically for same. A FWW is recommenedd and Leilani was following to facilitate this from the therapy consignment closet. Will follow up tomorrow and meet with pt to assist with any d/c needs that may arise. Dr. Craven does say she expects pt to be able to d/c home on oral medications. CM Discharge Assessment Start: 09/07/18 16:26 Freq: Status: Active Protocol: Document 09/07/18 16:26 ITV (Rec: 09/07/18 16:27 ITV [id number]) Discharge Planning Assessment Advance Directives? No History Provided By Medical Record Expected Length of Stay 2 Prior Living Arrangements House Household Members friend(s) Review Status In Process Next Review Type Continued Stay Review
--- NOTE | 2018-09-07 17:04 | P.PN_ITS ---
Subjective Date Patient Seen: 09/07/18 Interval history: Chart reviewed, Patient seen and examined. The patient has had significant improvement in his right leg cellulitis and tenosynovitis. He continues to have some pain but improvement in rash. He notes diarrhea but reports formed stool. He feels well hydrated. Exam Vital Signs (past 8 hours): - 09/07/18 10:00 09/07/18 13:00 09/07/18 15:47 Temperature 97.8 F 98.5 F Pulse Rate 86 80 Respiratory Rate 18 20 Blood Pressure 126/79 116/65 Pulse Oximetry 97 97 96 Oxygen Delivery Method Room Air Oxygen Flow Rate 0 Narrative Exam Narrative: pleasant male in no Acute distress Lungs: clear to auscultation CV: RRR nl Sl S2 Ext: left foot with decreased erythema, streaking, warmth, swelling Objective Labs Result Diagrams: 09/07/18 06:50 09/07/18 06:50 Labs: Laboratory Results - last 24 hr 09/07/18 09/07/18 09/07/18 06:50 06:50 06:50 WBC 10.4 RBC 3.95 L Hgb 12.2 L Hct 36.1 L MCV 91.6 MCH 31.0 MCHC 33.9 RDW 14.0 Plt Count 195 Neut % (Auto) 87.7 H Lymph % (Auto) 4.2 L [place] % (Auto) 4.7 Eos % (Auto) 3.2 Baso % (Auto) 0.2 Neut # (Auto) 9100 H Lymph # (Auto) 400 L [place] # (Auto) 500 Eos # (Auto) 300 Baso # (Auto) 0 Sodium 136 L Potassium 3.6 Chloride 104 Carbon Dioxide 25 BUN 15 Creatinine 1.00 Estimated GFR > 60.0 BUN/Creatinine Ratio 15.0 Glucose 99 Calcium 8.2 L Total Bilirubin 0.3 AST 21 ALT 26 Alkaline Phosphatase 70 Total Protein 5.3 L Albumin 2.9 L Globulin 2.4 Albumin/Globulin Ratio 1.2 Procalcitonin 1.49 H Vancomycin Trough 09/07/18 11:02 WBC RBC Hgb Hct MCV MCH MCHC RDW Plt Count Neut % (Auto) Lymph % (Auto) [place] % (Auto) Eos % (Auto) Baso % (Auto) Neut # (Auto) Lymph # (Auto) [place] # (Auto) Eos # (Auto) Baso # (Auto) Sodium Potassium Chloride Carbon Dioxide BUN Creatinine Estimated GFR BUN/Creatinine Ratio Glucose Calcium Total Bilirubin AST ALT Alkaline Phosphatase Total Protein Albumin Globulin Albumin/Globulin Ratio Procalcitonin Vancomycin Trough 11.5 Assessment & Plan (1) Tenosynovitis of ankle: Problem details: Present on admission, no abcess identified. continue antibiotics Current visit: Yes Status: Acute (2) Cellulitis: Problem details: Cellulitis, present on admission, improving nicely. No evidence of abcess. Will D/C vancomycin, continue Zosyn plan to switch to kef zachary at discharge Qualifiers: Laterality: right Site of cellulitis: extremity Site of cellulitis of extremity: lower extremity Site of cellulitis of trunk: Qualified Code(s): L03.115 - Cellulitis of right lower limb Current visit: Yes Status: Acute Quality VTE Deep Vein Thrombosis/Pulmonary Embolism Present on Admission: No
--- NOTE | 2018-09-07 21:42 | PC.NURSE ---
Changed dressing on plantar aspect of R foot; previous wet from shower. Wound edges well approximated little drainage. Cleaned with sterile gauze, replaced with 2 x 2 and tegaderm.
[2018-09-08] VITALS (7 sets, daily range): BP systolic 125–142; BP diastolic 65–80; PULSE 67–79; RESP 16; TEMP 36.5–36.8; O2SAT 97–99
[2018-09-08] MEDS: PIPERACILLIN-TAZO 3.375 GM/50 ML FROZ.PIGGY IV ×2 (05:03→12:30)
[2018-09-08] MEDS: HYDROCODONE/ACET 5/325 TABLET 1 TAB PO (10:37)
--- NOTE | 2018-09-08 11:15 | PC.NURSE ---
Addendum entered by Galilea Khalil R.N. 09/08/18 14:58: per Dr. Craven, pt will spend one more night. Original Note: Day Shift- Pt &AOX4, pleasant and cooperative, able to make needs known using call light. Pt SBA to BR, steady gait, using walker with ambulation. States walking on heel. Right bottom of foot gauze and tegaderm dressing clean but dressing lifting to expose gauze. Dressing removed, area cleansed with NS, pt had some touch sensitivities. Small allevyn dressing applied. CIWA score 1. Spicer po prn given X1, pain tolerable, 2-3/10, more when dangling foot downwards and with ambulation. Enc elevation of RLE. Plan to discharge today, awaiting D/C order, Pt's friend will pick him up, states will have his prescriptions filled at pharmacy on [address]. No other voiced concerns.
--- NOTE | 2018-09-08 11:35 | PM.PN.1 ---
Subjective Date Patient Seen: 09/08/18 Interval history: Patient is seen bedside for cellulitis of the right foot. He is doing better, his pain is improved and he seems to be responding well to antibiotics. White count has normalized today. He does complain of some mild itching on the top of his foot. Otherwise he denies any extreme tenderness, numbness tingling, fever, chills, shortness of breath. Exam Vital Signs (past 8 hours): - 09/08/18 05:58 09/08/18 06:40 09/08/18 08:00 Temperature 97.9 F 97.7 F Pulse Rate 75 71 Respiratory Rate 16 16 Blood Pressure 129/65 138/76 Pulse Oximetry 98 99 09/08/18 09:20 Temperature Pulse Rate Respiratory Rate Blood Pressure Pulse Oximetry 97 Oxygen Delivery Method Room Air Oxygen Flow Rate 0 Narrative Exam Narrative: Well-developed well-nourished no acute distress. Alert oriented x3. Erythema on right foot appears to be improving. 2+ pulses with capillary refill less than 2 seconds. Mild swelling of the foot. Objective Labs Result Diagrams: 09/07/18 06:50 09/07/18 06:50 Labs: Laboratory Results - last 24 hr 09/07/18 11:02 Vancomycin Trough 11.5 Assessment & Plan Assessment & Plan narrative: 1. Right foot cellulitis-continue IV antibiotics for 1-2 more days with transition to oral antibiotics for outpatient treatment. Defer to Medicine for this. Add Benadryl as needed for itching. Time Spent With Patient Time with patient: less than 15 minutes Quality VTE Deep Vein Thrombosis/Pulmonary Embolism Present on Admission: No
--- NOTE | 2018-09-08 15:48 | P.DS_ITS ---
History of Present Illness Date Patient Seen: 09/08/18 Chief complaint: RT FOOT PAIN Narrative: Left ventricular ejection fraction is estimated to be 50%. There is critically severe aortic stenosis. The calculated aortic valve area is 0.7 cm2. The peak aortic velocity is 4.7 m/sec. The aortic valve mean gradient is 57.7 mmHg. There is severe mitral regurgitation. ERO 0.5 housekeeping aid?.There is prolapse of the posterior mitral valve leaflet(s). There is severe tricuspid regurgitation. The right ventricular systolic pressure is estimated to be at least 51 mmHg based on an estimated right atrial pressure of 15 mm Hg. Flattened septum is consistent with RV pressure/volume overload. There is a moderately large right-sided pleural effusion. -Overall this echo shows hemodynamically significant aortic stenosis with similar hemodynamics compared to 11/02/2016 but smaller valve area. There is also severe mitral regurgitation, posterior mitral valve leaflet prolapse and severe tricuspid regurgitation and evidence of increased biventricular filling pressures. Discharge Providers Date of admission: 09/05/18 20:33 Discharge Date: 09/08/18 Consults: 09/05/18 22:59 Consult to Discharge Planning Routine Comment: Consult to Physical Therapy Evaluate & Treat Comment: cellulitis right foot Physician Instructions: Evaluate and Treat 09/06/18 08:25 Consult to Wound Care Routine Comment: Consulting Provider: [facility] 09/06/18 12:35 Consult to Orthopedic Surgery Routine Comment: Consulting Provider: Shania Adkins Reason for consultation: Tenosynovitis Has provider been notified: Yes 09/08/18 10:08 Consult to Physical Therapy Evaluate & Treat Comment: FWW for home use Physician Instructions: Evaluate and Treat Discharge provider: Meri Craven MD Summary Discharge Diagnosis: Tenosynovitis, Acute, left foot, present on admission Cellulitis, left foot, present on admission Etoh Dependence Anxiety Hospital Course: patient was admitted to the hospital for treatment of cellulitis of the left foot. He had a MRI which confirmed the following: Mild flexor hallucis longus tendinopathy with corresponding tenosynovitis. No significant hearing. 2. Subcutaneous and deep tissue edema of the midfoot and forefoot. There is no drainable fluid collection or soft tissue mass. 3. Mild degenerative changes involving the lateral mid foot joints and the 1st metatarsophalangeal joint. The patient was treated with IV Zosyn/Vancomycin, then Zosyn with slow but steady improvement of his cellulitis. The redness of the foot improved, His WBC improved he continues to have tenderness along the plantar surface of the foot, With leg elevation the redness is significantly better. Patient was deemed apporpriate for discharge home Status at Discharge Cognitive/behavioral status at discharge: oriented Functional status at discharge: uses cane/walker Overall status at discharge: patient is not back to baseline Time Spent with Patient Less than 30 minutes Exam Vital Signs (past 8 hours): - 09/08/18 08:00 09/08/18 09:20 09/08/18 12:00 Temperature 97.7 F 98.2 F Pulse Rate 71 67 Respiratory Rate 16 16 Blood Pressure 138/76 142/80 H Pulse Oximetry 99 97 98 Oxygen Delivery Method Room Air Oxygen Flow Rate 0 Narrative Exam Narrative: pleasant candida in no acute distress Lungs: clear to auscultation CV: RRR nl Sl S2 Abd: soft/ non tender/ non distended Left foot: decreased erythema, edema, some swelling and tenderness along the plantar surface. Objective Labs Result Diagrams: 09/07/18 06:50 09/07/18 06:50 Discharge Plan Discharge Plan Patient Disposition: Home Discharge comment: New patient appointment with provider on [place], Call clinic for new patient appointment Discharge Med Rec/Prescriptions Prescriptions: New hydrocodone-acetaminophen 5-325 mg Tablet 1 tab PO Q4HR PRN (Reason: Pain, Moderate (4-6)) Qty: 10 RF: 0 cephalexin [Keflex] 500 mg capsule 500 mg PO QID Qty: 20 RF: 0 No Action No Known Home Medications RF: 0 Provider Discharge Instructions Diet: Diet as Tolerated and Regular Activity: weight bear as tolerated Oxygen: not indicated Skin/Wound/Dressing Care Skin care: elevate leg until cellulitis resolved Visit Report/Discharge Packet Instructions: DI for Cellulitis -- Adult, How to Prevent Falls, DI for Tenosynovitis, Hydrocodone/Acetaminophen (By mouth) Visit Report Forms: Stroke Signs & Symptoms Discharge Data Attending Provider: Jose Lau Admit Date/Time: 09/05/18 20:33 Quality VTE Deep Vein Thrombosis/Pulmonary Embolism Present on Admission: No
--- NOTE | 2018-09-08 17:19 | CM.DPC ---
DCP: continued: Spoke with Dr. Craven late this afternoon. She states she initially planned to d/c pt home this morning but was concerned after her assessment of his foot. She notes that now he is most eager to d/c and wants to go to his friend who is renting a hotel room for the night. He wished [employer] for tomorrow and wanted to pay to take him to the [facility]. His friend will be driving him back to [place] tomorrow. Spoke with Jojo Baker. He stated pt already understood that he could not get the PB since is not using it today. He also agreed to update pt that any taxi to the hotel would need to be pd by himself and his friend or the friend could pick him up at the hospital. Dr. Craven was updated re above.
== END 2018-09-08 16:53 | disposition home or self-care (01) | DRG 351 ==
LOC: ED 19:17 → AC 09-06 07:05
PROVIDERS: Internal Medicine; Admitting Provider Nurse Practitioner Adult Health; Emergency Provider Emergency Medicine; Visit Provider Nurse Practitioner Adult Health
DX: M65.871 Other synovitis and tenosynovitis, right ankle and foot (principal); L03.115 Cellulitis of right lower limb; F10.10 Alcohol abuse, uncomplicated; I10 Essential (primary) hypertension; F17.210 Nicotine dependence, cigarettes, uncomplicated; S91.311A Laceration without foreign body, right foot, initial encounter
CPT/HCPCS: 36415; 36591; 73630; 73720; 80048; 80053; 80202; 83036; 83605; 83690; 84145; 85025; 85651; 86140; 87040; 87797; 96365; 96366; 96367; 96375; 96376; 97162; 99283; 99284; J1650; J1885; J2270; J2405; J2543; J3370